=== PATIENT | female | born 1960 | race Caucasian/White ===

== ENCOUNTER 2016-04-11 19:11 | Emergency (ER) | payer OTHER ==
[~2016-04-11] VITALS: Ht 170.2 cm; Wt 77.3 kg
[~2016-04-11 19:11] MED LIST: ALBU8.5H3 INH; ALBU8.5H5 IH; CETI10CA PO; GUAI120S26 PO; PRED50TA PO; SERT25TA PO
[2016-04-11 19:22] VITALS: Ht 170.2 cm; Wt 77.3 kg
--- NOTE | 2016-04-11 19:43 | ERA ---
ER Documentation Chief Complaint Date/Time DATE: 04/11/16 TIME: 19:42 Chief Complaint SI, OUT OF PSYCH MEDS X'S 3 MONTHS HPI 55-year-old female with a history of asthma and schizophrenia brought to the ED by rescue ambulance complaining of several day history of worsening command type auditory hallucinations telling her to hurt herself. Admits to noncompliance with medications. Denies alcohol or drug use. No shortness of breath or cough. Denies chest pain or palpitations. No abdominal pain, nausea vomiting. No headache or neck pain. No fevers or chills. ROS All systems reviewed and are negative except as per history of present illness. Medications Home Meds Active Scripts Prednisone* (Prednisone*) 50 Mg Tablet, 50 MG PO DAILY for 5 Days, TAB Prov:MANJEET CRUZ NP 01/06/16 Cetirizine Hcl* (Zyrtec*) 10 Mg Capsule, 10 MG PO DAILY, #30 TAB.CHEW Prov:MANJEET CRUZ NP 01/06/16 Pknmonhnkxi-C-Aebakcqlbb Hb* (Guaifenesin* DM Syrup) 120 Ml Syrup, 10 ML PO Q4H Y for COUGH, #120 ML Prov:MANJEET CRUZ NP 01/06/16 Albuterol Sulfate* (Proair HFA*) 8.5 Gm Hfa.aer.ad, 2 PUFF INH Q4H Y for WHEEZING AND SOB, #1 INHALER Prov:MANJEET CRUZ NP 01/06/16 Reported Medications Sertraline Hcl* (Zoloft*) 25 Mg Tablet, 25 MG PO DAILY, TAB 11/04/13 Albuterol Sulfate* (Albuterol Sulfate* HFA) 8.5 Gm Hfa.aer.ad, 2 PUFF IH Q4H Y for WHEEZING AND SOB, EA 08/02/13 Allergies Allergies: Coded Allergies: No Known Drug Allergies (Verified Allergy, Mild, 01/06/16) PMhx/Soc Reviewed in chart. As per HPI. History of Surgery: Yes (Breast augmentation) Anesthesia Reaction: No Hx Neurological Disorder: No Hx Respiratory Disorders: Yes (ASTHMA) Hx Cardiac Disorders: No Hx Psychiatric Problems: Yes (Schizophrenia) Hx Miscellaneous Medical Probl: No Hx Alcohol Use: No Hx Substance Use: No Hx Tobacco Use: No Smoking Status: Never smoker FmHx No stroke or cancer Physical Exam Vitals Vital Signs Date Time Temp Pulse Resp B/P Pulse Ox O2 Delivery O2 Flow Rate FiO2 04/11/16 19:22 97.4 83 18 163/77 96 04/11/16 19:22 97.4 83 18 163/77 96 Room Air Physical Exam Const: Alert, anxious but in no acute distress. Head: Atraumatic Eyes: Normal Conjunctiva. Pupils equal reactive to light. No nystagmus. ENT: Normal External Ears, Nose and Mouth. Neck: Full range of motion. Nontender. No meningismus. Resp: Clear to auscultation bilaterally Cardio: Regular rate and rhythm, no murmurs Abd: Soft, non tender, non distended. Normal bowel sounds Skin: No petechiae or rashes Back: No midline or flank tenderness Ext: No cyanosis, or edema Neur: Awake and alert Psych: Mild agitation. Pressured speech. Mood is anxious. Judgment is impaired by abnormal thoughts. Auditory but no visual hallucinations. Suicidal but no homicidal ideations Result Diagram: 04/11/16194904/11/161949 Results 24 hrs Laboratory Tests Test 04/11/16 19:50 04/11/16 20:00 Acetaminophen Level < 10.0ug/ml Alanine Aminotransferase (ALT/SGPT) 48IU/L Albumin 3.4g/dl Albumin/Globulin Ratio 1.36 Alkaline Phosphatase 73IU/L Anion Gap 13 Aspartate Amino Transf (AST/SGOT) 54IU/L Basophils # 0.010^3/ul Basophils % 0.5% Blood Urea Nitrogen 13mg/dl Calcium Level 8.6mg/dl Carbon Dioxide Level 33mmol/L Chloride Level 105mmol/L Creatinine 0.93mg/dl Direct Bilirubin 0.00mg/dl Eosinophils # 0.610^3/ul Eosinophils % 11.4% Ethyl Alcohol Level < 10.0mg/dl Globulin 2.50g/dl Glucose Level 93mg/dl Hematocrit 38.0% Hemoglobin 12.1g/dl Indirect Bilirubin 0.1mg/dl Lymphocytes # 2.310^3/ul Lymphocytes % 40.6% Mean Corpuscular Hemoglobin 27.9pg Mean Corpuscular Hemoglobin Concent 31.8g/dl Mean Corpuscular Volume 87.6fl Mean Platelet Volume 10.4fl Monocytes # 0.610^3/ul Monocytes % 11.1% Neutrophils # 2.010^3/ul Neutrophils % 36.2% Nucleated Red Blood Cells # 0.010^3/ul Nucleated Red Blood Cells % 0.0/100WBC Platelet Count 66050^3/UL Potassium Level 4.5mmol/L Red Blood Count 4.3410^6/ul Red Cell Distribution Width 15.9% Salicylates Level < 1.0mg/dl Sodium Level 146mmol/L Total Bilirubin 0.1mg/dl Total Protein 5.9g/dl White Blood Count 5.610^3/ul Urine Amphetamines Screen Negative Urine Bacteria OCCASIONAL Urine Barbiturates Negative Urine Benzodiazepines Screen Negative Urine Bilirubin NEGATIVE Urine Cannabinoids Negative Urine Clarity CLEAR Urine Cocaine Screen Positive Urine Color LT. YELLOW Urine Glucose NEGATIVE% Urine Hemoglobin NEGATIVE Urine Ketones NEGATIVE Urine Leukocyte Esterase TRACE Urine Microscopic RBC NONE SEEN/HPF Urine Microscopic WBC 2-5/HPF Urine Nitrite NEGATIVE Urine Opiates Screen Negative Urine Specific [place] 1.015 Urine Squamous Epithelial Cells FEW Urine Total Protein NEGATIVE Urine Urobilinogen 0.2 E.U./dL Urine pH 7.0 Current Medications Medications (Trade) Dose Ordered Sig/Kirit Route PRN Reason Start Time Stop Time Status Last Admin Dose Admin Albuterol (Ventolin Hfa) 2 puff ONCE ONCE INH 04/11/16 20:00 04/11/16 20:01 DC 04/11/16 20:12 Procedures/MDM DOCUMENTS REVIEWED: ED nurse, prior ED, prior records MEDICAL DECISION MAKIN-year-old female with a history of asthma and schizophrenia brought to the ED by rescue ambulance complaining of several day history of worsening command type auditory hallucinations telling her to hurt herself. Patient presents with symptomatology consistent with decompensation of previously diagnosed psychiatric disease. Based on history, physical exam and appropriate lab tests, I appreciate no evidence of significant life threatening injury or illness that precludes psychiatric hospitalization. There are no toxic , infectious, metabolic, COATING MACHINE OPERATOR or other unstable co-morbidities. Patient is thus medically clear for psychiatric admission. In regards to the psychiatric complaints, this patient has clear evidence of high risk psychiatric symptoms with significant risk for decompensation and 5150 hold as recommended by the telemedicine psychiatrist. Disposition pending PET team evaluation. Counseled patient regarding diagnosis, diagnostic results and plan for admission. CALLS/CONSULTS: Time 20:50. Dr. Mcclain, Recommends 5150 hold. Departure Diagnosis: Primary Impression: Paranoid schizophrenia Additional Impressions: History of asthma Noncompliance with medication regimen Condition: Serious LIZ ALMAGUER MD Apr 11, 2016 19:42
[2016-04-11] MEDS ORDERED: ALBUTEROL HFA 8 GM INHALER INH ONE (20:00)
[2016-04-11 20:06] LABS: ADD SCAN DIFF NO
[2016-04-11 20:10] LABS: BASOPHILS % 0.5 % (0.0-2.0); EOSINOPHILS # 0.6 10^3/ul (0.0-0.5); EOSINOPHILS % 11.4 % (0.0-7.0); HEMOGLOBIN 12.1 g/dl (12.0-16.0); LYMPHOCYTES # 2.3 10^3/ul (0.8-2.9); LYMPHOCYTES % 40.6 % (15.0-51.0); MEAN CORPUSCULAR HEMOGLOBIN 27.9 pg (29.0-33.0); MEAN CORPUSCULAR HGB CONC 31.8 g/dl (32.0-37.0); MEAN CORPUSCULAR VOLUME 87.6 fl (82.0-101.0); MEAN PLATELET VOLUME 10.4 fl (7.4-10.4); MONOCYTE # 0.6 10^3/ul (0.3-0.9); MONOCYTES % 11.1 % (0.0-11.0); NEUTROPHILS % 36.2 % (39.0-77.0); PLATELET COUNT 231 10^3/UL (140-415); RED BLOOD COUNT 4.34 10^6/ul (4.20-5.40); RED CELL DISTRIBUTION WIDTH 15.9 % (11.5-14.5); WHITE BLOOD COUNT 5.6 10^3/ul (4.8-10.8)
[2016-04-11 20:26] LABS: CHLORIDE 105 mmol/L (97-110)
[2016-04-11 20:27] LABS: ALBUMIN 3.4 g/dl (3.3-4.9); SODIUM 146 mmol/L (135-144)
[2016-04-11 20:28] LABS: POTASSIUM 4.5 mmol/L (3.5-5.1)
[2016-04-11 20:30] LABS: ALANINE AMINOTRANSFERASE 48 IU/L (13-69); ALBUMIN/GLOBULIN RATIO 1.36; ALKALINE PHOSPHATASE 73 IU/L (42-121); ANION GAP 13 (8-16); ASPARTATE AMINO TRANSFERASE 54 IU/L (15-46); BILIRUBIN,INDIRECT 0.1 mg/dl (0-1.1); BILIRUBIN,TOTAL 0.1 mg/dl (0.2-1.3); BLOOD UREA NITROGEN 13 mg/dl (7-20); CARBON DIOXIDE 33 mmol/L (21-31); CREATININE 0.93 mg/dl (0.44-1.00); GLUCOSE 93 mg/dl (70-220); TOTAL PROTEIN 5.9 g/dl (6.1-8.1)
[2016-04-11 20:31] LABS: CALCIUM 8.6 mg/dl (8.4-10.2); ETHANOL < 10.0 mg/dl; SALICYLATE < 1.0 mg/dl (5.0-30.0)
[2016-04-11 20:34] LABS: ACETAMINOPHEN < 10.0 ug/ml (10.0-30.0)
[2016-04-11 21:28] LABS: ADD UMIC YES; URINE BILIRUBIN (Dip) NEGATIVE (NEGATIVE); URINE BLOOD (Dip) NEGATIVE (NEGATIVE); URINE COLOR LT. YELLOW (YELLOW); URINE GLUCOSE (Dip) NEGATIVE (NEGATIVE); URINE KETONES (Dip) NEGATIVE (NEGATIVE); URINE LEUKOCYTE ESTERASE (Dip) TRACE (NEGATIVE); URINE NITRITE (Dip) NEGATIVE (NEGATIVE); URINE TOTAL PROTEIN (Dip) NEGATIVE (NEGATIVE); URINE UROBILINOGEN (Dip) 0.2 E.U./dL (0.1-1.0)
[2016-04-11 21:42] LABS: BACTERIA,URINE OCCASIONAL; SQUAMOUS EPITHELIAL CELL,UR FEW; URINE RBCS NONE SEEN /HPF (0)
[2016-04-11 21:44] LABS: BARBITURATES Negative (NEGATIVE); BENZODIAZEPINES Negative (NEGATIVE); CANNABINOIDS Negative (NEGATIVE)
[2016-04-11 21:49] LABS: COCAINE Positive (NEGATIVE); OPIATES Negative (NEGATIVE)
--- NOTE | 2016-04-12 00:39 | PSY ---
Date/Time of Note Date/Time of Note DATE: 04/12/16 TIME: 00:19 Psychiatric Subjective Eval Consent Pt consented to telemedicine: Yes Subjective Evaluation Patient location: emergency Chief Complaint: SI, OUT OF PSYCH MEDS X'S 3 MONTHS Reason for consult: PSYCH History of present illness patient is a 55 yo female with PPH Of schizophrenia and depression who has been off her medication for the past 3 months , she states that she has been feeling depressed, hopeless and helpless for months and she wants to by hanging herself, she cannot tell me why she is feeling depressed, she has not been able to sleep well for few days, suffers from decrease appetite, she is very anxious adn she has been hearing voices telling her to kill herself and feeling paranoid , denies any HI, denies any drug or alcohol use but utox positive for cocaine. Past psychiatric history past suicidal attempt yes Hospitalization: yes Family History denies Medical history Problems Medical Problems: (1) Acute bronchitis Status: Acute (2) Asthma with acute exacerbation Status: Acute (3) Chronic schizoaffective disorder with acute exacerbation Status: Acute (4) Cough Status: Acute (5) History of asthma Status: Acute (6) Noncompliance with medication regimen Status: Acute (7) Paranoid schizophrenia Status: Acute Allergies: Coded Allergies: No Known Drug Allergies (Verified Allergy, Mild, 01/06/16) Substance Abuse Substance use: No known substance abuse Social History Marital status: single Level of education: HS DPA/Conservatorship: No Occupation/Alf: DISABILITY Psychiatric Objective Eval Review of Systems: Review of Systems: Not Applicable Physical Examination: Physical Examination: Applicable Sleep: Insomnia Appetite: Decreased Energy: Decreased Interest: Decreased Mental Status Examination: Appearance: Disheveled Eye Contact: Fair Psychomotor Activity: Slow Behavior: Cooperative Speech: Clear AFFECT: Depressed, Anxious Mood: Depressed Though Process: Linear Thought Content: Delusions Suicidal: Yes Homicidal: No On 72 hour hold: No Orientation: x3 Cognition: Alert Insight: Impared Judgement: Impared Attention Span: Distractible Laboratory Results Laboratory Tests Test 04/11/16 19:50 04/11/16 20:00 Acetaminophen Level < 10.0ug/ml Alanine Aminotransferase (ALT/SGPT) 48IU/L Albumin 3.4g/dl Albumin/Globulin Ratio 1.36 Alkaline Phosphatase 73IU/L Anion Gap 13 Aspartate Amino Transf (AST/SGOT) 54IU/L Basophils # 0.010^3/ul Basophils % 0.5% Blood Urea Nitrogen 13mg/dl Calcium Level 8.6mg/dl Carbon Dioxide Level 33mmol/L Chloride Level 105mmol/L Creatinine 0.93mg/dl Direct Bilirubin 0.00mg/dl Eosinophils # 0.610^3/ul Eosinophils % 11.4% Ethyl Alcohol Level < 10.0mg/dl Globulin 2.50g/dl Glucose Level 93mg/dl Hematocrit 38.0% Hemoglobin 12.1g/dl Indirect Bilirubin 0.1mg/dl Lymphocytes # 2.310^3/ul Lymphocytes % 40.6% Mean Corpuscular Hemoglobin 27.9pg Mean Corpuscular Hemoglobin Concent 31.8g/dl Mean Corpuscular Volume 87.6fl Mean Platelet Volume 10.4fl Monocytes # 0.610^3/ul Monocytes % 11.1% Neutrophils # 2.010^3/ul Neutrophils % 36.2% Nucleated Red Blood Cells # 0.010^3/ul Nucleated Red Blood Cells % 0.0/100WBC Platelet Count 54600^3/UL Potassium Level 4.5mmol/L Red Blood Count 4.3410^6/ul Red Cell Distribution Width 15.9% Salicylates Level < 1.0mg/dl Sodium Level 146mmol/L Total Bilirubin 0.1mg/dl Total Protein 5.9g/dl White Blood Count 5.610^3/ul Urine Amphetamines Screen Negative Urine Bacteria OCCASIONAL Urine Barbiturates Negative Urine Benzodiazepines Screen Negative Urine Bilirubin NEGATIVE Urine Cannabinoids Negative Urine Clarity CLEAR Urine Cocaine Screen Positive Urine Color LT. YELLOW Urine Glucose NEGATIVE% Urine Hemoglobin NEGATIVE Urine Ketones NEGATIVE Urine Leukocyte Esterase TRACE Urine Microscopic RBC NONE SEEN/HPF Urine Microscopic WBC 2-5/HPF Urine Nitrite NEGATIVE Urine Opiates Screen Negative Urine Specific [place] 1.015 Urine Squamous Epithelial Cells FEW Urine Total Protein NEGATIVE Urine Urobilinogen 0.2 E.U./dL Urine pH 7.0 Assessment and Plan Assessment/Diagnosis Sandy I: schizoaffective do depressed type Sandy II: deferred Sandy III: as per record Sandy IV: poor social support Sandy V: gaf 25 Recommendation/Plan Medication Management ativan 1 mg po tid with haldol 2 mg po tid Follow-up/Disposition Please admit patient on unvoluntary status due to Danger to self, In my opinion, patient currently MEETS criterion for inpatient care and CANNOT be safely treated at a lower level of care today as evidenced by the following risk factors: Current and Recent Suicidal Ideation Previous suicide attempt and severe self-destructive behavior Intense feelings of hopelessness and lack of future orientation. Significant recent DETERIORATION in function, behavior and thought processes Command hallucinations with violent content Substance ABUSE in conjunction with another psychiatric disorder Non-Compliance with Outpatient Treatment Patient has failed outpatient and requires further inpatient assessment 5150 Recommendation: CECILIA Lewis MD Apr 12, 2016 00:35
[2016-04-12 09:25] VITALS: BP 156/90; PULSE 59; RESP 20; TEMP 98.3
== END 2016-04-12 09:26 ==
LOC: E/R 19:11
DX: F20.0 Paranoid schizophrenia (principal); J45.909 Unspecified asthma, uncomplicated; R40.2142 Coma scale, eyes open, spontaneous, at arrival to emergency department; R40.2252 Coma scale, best verbal response, oriented, at arrival to emergency department; R40.2362 Coma scale, best motor response, obeys commands, at arrival to emergency department; Z91.19 Patient's noncompliance with other medical treatment and regimen
CPT/HCPCS: 36415; 80053; 80306; 80307; 81001; 85025; Z7502; Z7610; 81003

== ENCOUNTER 2016-04-27 07:17 | Emergency (ER) | payer OTHER ==
[~2016-04-27] VITALS: Ht 170.2 cm; Wt 77.5 kg
[2016-04-27 07:19] VITALS: Ht 170.2 cm; Wt 77.5 kg
--- NOTE | 2016-04-27 07:41 | ERA ---
ER Documentation Chief Complaint Date/Time DATE: 04/27/16 TIME: 07:38 Chief Complaint suicidal ideation - wants to hurt herself - history of SI HPI Patient is a 56-year-old female who comes in stating that she is very depressed and wants to hurt yourself. She has been drinking alcohol more so lately. She states her last drink was this morning right before coming in. She has never experienced any withdrawal symptoms. She also states she is having trouble sleeping and that she took for her Zoloft in for her Risperdal before coming in. She says she is still unable to sleep. She has been scratching herself. She says that she is scratching herself trying to hurt herself. She says she scratched herself on her face and on her arms. She denies any chest pain, shortness of breath, coughing, congestion, rhinorrhea, sore throat, otalgia, headache, vertigo, paresthesias, focal weakness, abdominal pain, vomiting, diarrhea, nausea, dysuria, hematuria, abnormal bleeding, bruising, or rashes. She denies any auditory or visual hallucinations. Nothing seems to make her depression better or worse in the remainder of the systems are negative. ROS All systems reviewed and are negative except as per history of present illness. Medications Home Meds Reported Medications Sertraline Hcl* (Zoloft*) 25 Mg Tablet, 25 MG PO DAILY, TAB 11/04/13 Albuterol Sulfate* (Albuterol Sulfate* HFA) 8.5 Gm Hfa.aer.ad, 2 PUFF IH Q4H Y for WHEEZING AND SOB, EA 08/02/13 Discontinued Scripts Prednisone* (Prednisone*) 50 Mg Tablet, 50 MG PO DAILY for 5 Days, TAB Prov:MANJEET CRUZ NP 01/06/16 Cetirizine Hcl* (Zyrtec*) 10 Mg Capsule, 10 MG PO DAILY, #30 TAB.CHEW Prov:MANJEET CRUZ NP 01/06/16 Shzxfwljpco-S-Mgfasjbzvo Hb* (Guaifenesin* DM Syrup) 120 Ml Syrup, 10 ML PO Q4H Y for COUGH, #120 ML Prov:MANJEET CRUZ NP 11/29/16 Albuterol Sulfate* (Proair HFA*) 8.5 Gm Hfa.aer.ad, 2 PUFF INH Q4H Y for WHEEZING AND SOB, #1 INHALER Prov:MANJEET CRUZ NP 01/06/16 Allergies Allergies: Coded Allergies: No Known Drug Allergies (Verified Allergy, Mild, 04/27/16) PMhx/Soc History of Surgery: Yes (Breast augmentation) Anesthesia Reaction: No Hx Neurological Disorder: No Hx Respiratory Disorders: Yes (ASTHMA) Hx Cardiac Disorders: No Hx Psychiatric Problems: Yes (Schizophrenia) Hx Miscellaneous Medical Probl: No Hx Alcohol Use: No Hx Substance Use: No Hx Tobacco Use: No FmHx Family History: No coronary disease, No diabetes Physical Exam Vitals Vital Signs Date Time Temp Pulse Resp B/P Pulse Ox O2 Delivery O2 Flow Rate FiO2 04/27/16 14:31 90 97 Nasal Cannula 04/27/16 13:40 76 16 126/65 96 Nasal Cannula 2.0 04/27/16 09:54 97.1 69 12 83/48 89 Room Air 04/27/16 07:19 98.0 83 19 155/93 94 Physical Exam Const: [] Well-developed well-nourished female sitting on the bed tearful Head: normocephalic, superficial scratches noted on her left cheek Eyes: Normal Conjunctiva ENT: Normal External Ears, Nose and Mouth. Neck: Full range of motion..~ No meningismus. Resp: Clear to auscultation bilaterally Cardio: Regular rate and rhythm, no murmurs Abd: Soft, non tender, non distended. Normal bowel sounds, no masses, rebound , or guarding Skin: No petechiae or rashes Back: No midline or flank tenderness Ext: No cyanosis, or edema, superficial scratch ghosh noted on her right distal forearm Neur: Awake and alert, oriented 3, GCS of 15, moves all extremities equally , grossly nonfocal Psych: Depressed and tearful Result Diagram: 04/27/16 0800 04/27/16 0800 Results 24 hrs Laboratory Tests Test 04/27/16 08:00 Acetaminophen Level < 10.0ug/ml Alanine Aminotransferase (ALT/SGPT) 29IU/L Albumin 4.1g/dl Albumin/Globulin Ratio 1.28 Alkaline Phosphatase 87IU/L Anion Gap 16 Aspartate Amino Transf (AST/SGOT) 24IU/L Basophils # 0.010^3/ul Basophils % 0.5% Blood Urea Nitrogen 4mg/dl Calcium Level 9.6mg/dl Carbon Dioxide Level 28mmol/L Chloride Level 100mmol/L Creatinine 0.79mg/dl Direct Bilirubin 0.00mg/dl Eosinophils # 0.810^3/ul Eosinophils % 14.0% Ethyl Alcohol Level < 10.0mg/dl Globulin 3.20g/dl Glucose Level 107mg/dl Hematocrit 40.4% Hemoglobin 13.5g/dl Indirect Bilirubin 0.2mg/dl Lymphocytes # 1.310^3/ul Lymphocytes % 22.1% Mean Corpuscular Hemoglobin 28.0pg Mean Corpuscular Hemoglobin Concent 33.4g/dl Mean Corpuscular Volume 83.6fl Mean Platelet Volume 10.4fl Monocytes # 0.510^3/ul Monocytes % 8.1% Neutrophils # 3.110^3/ul Neutrophils % 54.8% Nucleated Red Blood Cells # 0.010^3/ul Nucleated Red Blood Cells % 0.0/100WBC Platelet Count 24916^3/UL Potassium Level 3.2mmol/L Red Blood Count 4.8310^6/ul Red Cell Distribution Width 15.1% Salicylates Level < 1.0mg/dl Sodium Level 141mmol/L Total Bilirubin 0.2mg/dl Total Protein 7.3g/dl Urine Amphetamines Screen NEGATIVE Urine Barbiturates NEGATIVE Urine Benzodiazepines Screen NEGATIVE Urine Bilirubin NEGATIVE Urine Cannabinoids NEGATIVE Urine Clarity CLEAR Urine Cocaine Screen POSITIVE Urine Color LT. YELLOW Urine Glucose NEGATIVE% Urine Hemoglobin NEGATIVE Urine Ketones NEGATIVE Urine Leukocyte Esterase 1+ Urine Microscopic RBC NONE SEEN/HPF Urine Microscopic WBC 0-2/HPF Urine Nitrite NEGATIVE Urine Opiates Screen NEGATIVE Urine Specific [place] <=1.005 Urine Squamous Epithelial Cells FEW Urine Total Protein NEGATIVE Urine Urobilinogen 0.2 E.U./dL Urine pH 6.0 White Blood Count 5.710^3/ul Current Medications Medications (Trade) Dose Ordered Sig/Kirit Route PRN Reason Start Time Stop Time Status Last Admin Dose Admin Diphtheria/ Tetanus/Acell Pertussis (Adacel) 0.5 ml ONCE ONCE IM* 04/27/16 08:00 04/27/16 08:01 DC 04/27/16 09:25 Vitamin A/Vitamin D 1 applic 1 applic ONCE ONCE TOP 04/27/16 08:30 04/27/16 08:52 DC 04/27/16 09:24 Sodium Chloride (NS) 1,000 ml @ 1,000 mls/hr Q1H ONCE IV 04/27/16 10:00 04/27/16 10:59 DC 04/27/16 10:07 Procedures/MDM Differential includes but is not limited to depression, suicidal ideation, overmedication, alcohol intoxication, superficial abrasions Pretty soon after the patient arrived to the emergency department she became oversedated probably from taking her Zoloft and Risperdal for her insomnia. She was unable to participate in the tele-psych examination. She is currently sleeping in the hallway. 1430: Patient continues to rest in the hallway. She has had no change in her examination. When she arouses from her Zoloft and Risperdal we will have Jos[facility] psych evaluate her. 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
[2016-04-27] MEDS ORDERED: DIPHTH/TET/ACEL PERTUSS (ADULT) 0.5 ML VIAL IM* ONE (08:00)
[2016-04-27 08:15] LABS: ADD SCAN DIFF NO
[2016-04-27 08:18] LABS: BASOPHILS % 0.5 % (0.0-2.0); EOSINOPHILS # 0.8 10^3/ul (0.0-0.5); HEMATOCRIT 40.4 % (37.0-47.0); HEMOGLOBIN 13.5 g/dl (12.0-16.0); LYMPHOCYTES # 1.3 10^3/ul (0.8-2.9); LYMPHOCYTES % 22.1 % (15.0-51.0); MEAN CORPUSCULAR HGB CONC 33.4 g/dl (32.0-37.0); MEAN CORPUSCULAR VOLUME 83.6 fl (82.0-101.0); MEAN PLATELET VOLUME 10.4 fl (7.4-10.4); MONOCYTE # 0.5 10^3/ul (0.3-0.9); MONOCYTES % 8.1 % (0.0-11.0); NEUTROPHIL # 3.1 10^3/ul (1.6-7.5); NEUTROPHILS % 54.8 % (39.0-77.0); PLATELET COUNT 245 10^3/UL (140-415); RED BLOOD COUNT 4.83 10^6/ul (4.20-5.40); RED CELL DISTRIBUTION WIDTH 15.1 % (11.5-14.5); WHITE BLOOD COUNT 5.7 10^3/ul (4.8-10.8)
[2016-04-27 08:28] LABS: ADD UMIC YES; URINE BILIRUBIN (Dip) NEGATIVE (NEGATIVE); URINE BLOOD (Dip) NEGATIVE (NEGATIVE); URINE COLOR LT. YELLOW (YELLOW); URINE GLUCOSE (Dip) NEGATIVE (NEGATIVE); URINE KETONES (Dip) NEGATIVE (NEGATIVE); URINE LEUKOCYTE ESTERASE (Dip) 1+ (NEGATIVE); URINE NITRITE (Dip) NEGATIVE (NEGATIVE); URINE TOTAL PROTEIN (Dip) NEGATIVE (NEGATIVE); URINE UROBILINOGEN (Dip) 0.2 E.U./dL (0.1-1.0)
[2016-04-27 08:30] LABS: ALBUMIN 4.1 g/dl (3.3-4.9); CHLORIDE 100 mmol/L (97-110); SODIUM 141 mmol/L (135-144)
[2016-04-27] MEDS ORDERED: VITAMIN A & D 5 GM OINT PACKET TOP ONE (08:30)
[2016-04-27 08:31] LABS: POTASSIUM 3.2 mmol/L (3.5-5.1)
[2016-04-27 08:33] LABS: ALBUMIN/GLOBULIN RATIO 1.28; ALKALINE PHOSPHATASE 87 IU/L (42-121); ANION GAP 16 (8-16); ASPARTATE AMINO TRANSFERASE 24 IU/L (15-46); BILIRUBIN,INDIRECT 0.2 mg/dl (0-1.1); BILIRUBIN,TOTAL 0.2 mg/dl (0.2-1.3); BLOOD UREA NITROGEN 4 mg/dl (7-20); CALCIUM 9.6 mg/dl (8.4-10.2); CARBON DIOXIDE 28 mmol/L (21-31); CREATININE 0.79 mg/dl (0.44-1.00); GLUCOSE 107 mg/dl (70-220); TOTAL PROTEIN 7.3 g/dl (6.1-8.1)
[2016-04-27 08:34] LABS: ALANINE AMINOTRANSFERASE 29 IU/L (13-69)
[2016-04-27 08:40] LABS: ACETAMINOPHEN < 10.0 ug/ml (10.0-30.0); SALICYLATE < 1.0 mg/dl (5.0-30.0)
[2016-04-27 08:50] LABS: SQUAMOUS EPITHELIAL CELL,UR FEW; URINE RBCS NONE SEEN /HPF (0)
[2016-04-27 09:15] LABS: ETHANOL < 10.0 mg/dl
[2016-04-27 09:40] LABS: BARBITURATES NEGATIVE (NEGATIVE); BENZODIAZEPINES NEGATIVE (NEGATIVE); CANNABINOIDS NEGATIVE (NEGATIVE); COCAINE POSITIVE (NEGATIVE); OPIATES NEGATIVE (NEGATIVE)
[2016-04-27] MEDS ORDERED: SOD CHLORIDE 0.9% 1,000 ML IV ONE (10:00)
[2016-04-27] MEDS ORDERED: ALBUTEROL 0.083% (NEB) 2.5 MG/3 ML AMP NEB STA (17:47)
[2016-04-27] MEDS ORDERED: POTASSIUM CHLORIDE (SR) 20 MEQ TAB PO STA (19:06)
--- NOTE | 2016-04-28 09:50 | PSY ---
Date/Time of Note Date/Time of Note DATE: 04/28/16 TIME: 09:46 Psychiatric Subjective Eval Consent Pt consented to telemedicine: Yes Subjective Evaluation Patient location: emergency Chief Complaint: suicidal ideation - wants to hurt herself - history of SI Reason for consult: suicidal ideation History of present illness 56 yo homeless female who walked [facility] yesterday c/o SI saying she took OD on risperidone and zoloft and scrathced herself in a SA. Pt was too sedated yesterday. This AM she is awake and alert; she reprots Si w/o a plan, depressed mood, feeling hopeless and helpless, command AH telling her to kill herself. Jeremy HI, jeremy V[facility], + PI. Admits to cocaine and alcohol use. Not able to contract for safety. Last inpt was one month ago for SA. Past psychiatric history multiple inpt Hospitalization: yes Family History denies Medical history Problems Medical Problems: (1) Abrasions of multiple sites Status: Acute (2) Acute bronchitis Status: Acute (3) Asthma with acute exacerbation Status: Acute (4) Chronic schizoaffective disorder with acute exacerbation Status: Acute (5) Cough Status: Acute (6) Depression Status: Acute (7) History of asthma Status: Acute (8) Noncompliance with medication regimen Status: Acute (9) Paranoid schizophrenia Status: Acute (10) Suicidal ideation Status: Acute Allergies: Coded Allergies: No Known Drug Allergies (Verified Allergy, Mild, 04/27/16) Substance Abuse Substance abuse history: Yes Prior substance abuse treatmen: Yes Social History Marital status: Level of education: 9th grade DPA/Conservatorship: No Psychiatric Objective Eval Physical Examination: Sleep: Insomnia Appetite: Decreased Energy: Decreased Interest: Decreased Mental Status Examination: Appearance: Disheveled Eye Contact: Fair Psychomotor Activity: Normal Behavior: Cooperative Speech: Clear AFFECT: Flat Mood: Depressed Though Process: Linear Thought Content: Hallucinations Suicidal: Yes Homicidal: No On 72 hour hold: No Orientation: x3 Cognition: Alert Insight: Impared Judgement: Impared Laboratory Results Laboratory Tests Test 04/27/16 08:00 Acetaminophen Level < 10.0ug/ml Alanine Aminotransferase (ALT/SGPT) 29IU/L Albumin 4.1g/dl Albumin/Globulin Ratio 1.28 Alkaline Phosphatase 87IU/L Anion Gap 16 Aspartate Amino Transf (AST/SGOT) 24IU/L Basophils # 0.010^3/ul Basophils % 0.5% Blood Urea Nitrogen 4mg/dl Calcium Level 9.6mg/dl Carbon Dioxide Level 28mmol/L Chloride Level 100mmol/L Creatinine 0.79mg/dl Direct Bilirubin 0.00mg/dl Eosinophils # 0.810^3/ul Eosinophils % 14.0% Ethyl Alcohol Level < 10.0mg/dl Globulin 3.20g/dl Glucose Level 107mg/dl Hematocrit 40.4% Hemoglobin 13.5g/dl Indirect Bilirubin 0.2mg/dl Lymphocytes # 1.310^3/ul Lymphocytes % 22.1% Mean Corpuscular Hemoglobin 28.0pg Mean Corpuscular Hemoglobin Concent 33.4g/dl Mean Corpuscular Volume 83.6fl Mean Platelet Volume 10.4fl Monocytes # 0.510^3/ul Monocytes % 8.1% Neutrophils # 3.110^3/ul Neutrophils % 54.8% Nucleated Red Blood Cells # 0.010^3/ul Nucleated Red Blood Cells % 0.0/100WBC Platelet Count 97398^3/UL Potassium Level 3.2mmol/L Red Blood Count 4.8310^6/ul Red Cell Distribution Width 15.1% Salicylates Level < 1.0mg/dl Sodium Level 141mmol/L Total Bilirubin 0.2mg/dl Total Protein 7.3g/dl Urine Amphetamines Screen NEGATIVE Urine Barbiturates NEGATIVE Urine Benzodiazepines Screen NEGATIVE Urine Bilirubin NEGATIVE Urine Cannabinoids NEGATIVE Urine Clarity CLEAR Urine Cocaine Screen POSITIVE Urine Color LT. YELLOW Urine Glucose NEGATIVE% Urine Hemoglobin NEGATIVE Urine Ketones NEGATIVE Urine Leukocyte Esterase 1+ Urine Microscopic RBC NONE SEEN/HPF Urine Microscopic WBC 0-2/HPF Urine Nitrite NEGATIVE Urine Opiates Screen NEGATIVE Urine Specific [place] <=1.005 Urine Squamous Epithelial Cells FEW Urine Total Protein NEGATIVE Urine Urobilinogen 0.2 E.U./dL Urine pH 6.0 White Blood Count 5.710^3/ul Assessment and Plan Assessment/Diagnosis [place] I: Bipolar I depressed with psychosis. PSD. [place] II: defered [place] III: asthma [place] IV: severe [place] V: gaf 25 Recommendation/Plan Medication Management please continue on zoloft 25 mg poqd; please resume risperidone 1 mg po bid Psychotherapy defer to inpt Pt. Caregiver/Family Education n/a Follow-up/Disposition please transfer to inpt psych [id number] Recommendation: AYANA WOODWARD MD Apr 28, 2016 09:50
[2016-04-28 23:49] VITALS: TEMP 98.8
[2016-04-29 00:32] VITALS: BP 114/58; PULSE 86; RESP 18
== END 2016-04-29 00:31 ==
LOC: E/R 07:17
DX: F33.2 Major depressive disorder, recurrent severe without psychotic features (principal); S00.81XA Abrasion of other part of head, initial encounter; S50.811A Abrasion of right forearm, initial encounter; R45.851 Suicidal ideations; J45.909 Unspecified asthma, uncomplicated; X58.XXXA Exposure to other specified factors, initial encounter; Y92.9 Unspecified place or not applicable; Z23 Encounter for immunization
CPT/HCPCS: 80053; 80306; 80307; 81001; 85025; 90715; 94664; J7030; Z7610; 36415; 81003; 90471; 96360; 96361

== ENCOUNTER 2016-09-12 03:53 | Emergency (ER) | payer OTHER ==
[~2016-09-12] VITALS: Ht 170.2 cm; Wt 72.7 kg
[~2016-09-12 03:53] MED LIST changes: -ALBU8.5H3 INH; -CETI10CA PO; -GUAI120S26 PO; -PRED50TA PO
[2016-09-12 03:55] VITALS: Ht 170.2 cm; Wt 72.7 kg
[2016-09-12] MEDS ORDERED: IPRATROPIUM (NEB) 0.5 MG/2.5 ML AMP INH STA (04:03)
[2016-09-12] MEDS ORDERED: ALBUTEROL 0.5% (NEB) 2.5 MG/0.5 ML AMP INH STA (04:03)
[2016-09-12] MEDS ORDERED: predniSONE 20 MG TAB PO ONE (04:30)
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
== END 2016-09-12 04:57 | disposition left against medical advice (07) ==
LOC: E/R 03:53
DX: R06.02 Shortness of breath (principal); J45.901 Unspecified asthma with (acute) exacerbation; F17.210 Nicotine dependence, cigarettes, uncomplicated
CPT/HCPCS: 94644; Z7502; Z7610

== ENCOUNTER 2017-04-03 20:49 | Emergency (ER) | END 2017-04-03 23:55 | disposition left against medical advice (07) ==

== ENCOUNTER 2017-06-13 07:57 | Emergency (ER) | END 2017-06-14 09:20 ==

== ENCOUNTER 2017-07-05 06:35 | Emergency (ER) | END 2017-07-05 08:35 | disposition home or self-care (01) ==

== ENCOUNTER 2017-07-09 03:19 | Emergency (ER) | END 2017-07-09 04:35 | disposition home or self-care (01) ==